=== PATIENT | male | born 1980 | race Caucasian/White ===

== ENCOUNTER 2016-12-20 19:31 | Emergency (ER) | payer OTHER ==
[~2016-12-20] VITALS: Ht 200.7 cm; Wt 126.0 kg
[~2016-12-20 19:31] MED LIST: BENTYL10 MG PO; HABITROL,NICODE14 MG TD; LOPRESSOR25 MG PO; MOTRIN600 MG PO; NOHOMEMEDS; PERCOCET 5/31 TABLET PO; Tylenol Regular Stre PO
[2016-12-20 20:07] LABS: MCH 29.3 PG (29.0-34.0); MCHC 33.8 G/DL (30.0-36.0); MCV 86.8 FL (86-99); RBC DIS.WIDTH-CV 13.1 % (11.8-14.6); RBC DIS.WIDTH-SD 41.7 % (39-53); RED BLOOD COUNT 5.76 M/uL (4.00-5.50)
[2016-12-20 20:18] LABS: CHLORIDE 102 mEq/L (99-109); POTASSIUM 4.5 mEq/L (3.7-5.4); SODIUM 138 mEq/L (136-147)
[2016-12-20 20:20] LABS: GLUCOSE 89 mg/dL (70-99)
[2016-12-20 20:21] LABS: ANION GAP 12 MEQ/L (2-14)
[2016-12-20 20:22] LABS: MEAN PLAT.VOLUME 11.4 uM^3 (9.0-12.4); PLATELET COUNT 148 K/uL (156-360); TOTAL BILIRUBIN 0.3 mg/dL (0.0-1.0)
[2016-12-20 20:23] LABS: ALKALINE PHOSPHATASE 84 IU/L (3-129)
[2016-12-20 20:24] LABS: GFR ESTIMATE (CALCULATED) > 59 mL/min/
[2016-12-20 20:25] LABS: UREA NITROGEN (BUN) 10 mg/dL (9-23)
[2016-12-20 20:27] LABS: LIPASE 13 U/L (1.0-51.0); TROP-I INTERPRETATION NEGATIVE; TROPONIN-I 0.01 ng/mL (0.0-0.30)
[2016-12-20] MEDS ORDERED: PHENERGAN1.25 MG/ML PO (21:20)
[2016-12-20 21:32] VITALS: BP 138/79
== END 2016-12-20 21:33 | disposition home or self-care (01) ==
LOC: EME 19:31
PROVIDERS: Physician Assistant
DX: R07.81 Pleurodynia (principal); R11.2 Nausea with vomiting, unspecified; R19.7 Diarrhea, unspecified; R05 Cough; F17.200 Nicotine dependence, unspecified, uncomplicated
CPT/HCPCS: 71020; 80053; 83690; 84484; 85027; 93005; 99281; 99284; J1885; Q0169